=== PATIENT | male | born 1980 ===

== ENCOUNTER → 2018-11-28 | Outpatient (CLI) | payer BC ==
--- NOTE | 2018-11-28 15:23 | US ---
Clinical history: 38-year-old male with right leg pain. Rule out DVT this patient with a "history of blood clots". Interpretation: Negative exam. No sign of intraluminal echogenic thrombus and normal compressibility deep veins of the right groin, thigh, knee, calf. No popliteal cyst or popliteal artery aneurysm identified behind the right knee. Satisfactory augmentation and venous waveforms demonstrated respectively in the peroneal/posterior tibial veins of the right calf; popliteal vein behind the right knee; and approximately in the femoral veins of right lower extremity. CONCLUSION: No current sonographic evidence deep vein thrombosis right lower extremity. And
== END ==
LOC: DL.US 12:43
PROVIDERS: ATTEND Family Medicine
DX: M79.604 Pain in right leg (principal)
CPT/HCPCS: 93971